=== PATIENT | female | born 1960 | race Caucasian/White ===

== ENCOUNTER 2016-10-07 16:58 | Emergency (ER) | payer MEDICAID ==
[~2016-10-07] VITALS: Ht 149.9 cm; Wt 68.0 kg
[~2016-10-07 16:58] MED LIST: [UNRECOGNIZED DRUG - REMARK]
[2016-10-07] MEDS ORDERED: AMOX/CLAVULANATE 875 MG TABLET PO ONE (18:00)
[2016-10-07] MEDS ORDERED: IBUPROFEN 600 MG TABLET PO ONE ×2 (18:00→19:25)
[2016-10-07] MEDS ORDERED: TDAP [DIPH/PERTUSSIS/TET] 0.5 ML VIAL IM ONE ×2 (18:00→19:25)
[2016-10-07] MEDS ORDERED: AMOX/CLAVULANATE 875 MG TABLET ONE (19:24)
== END 2016-10-07 20:20 | disposition home or self-care (01) ==
LOC: ER 17:07
DX: S41.152A Open bite of left upper arm, initial encounter (principal); J06.9 Acute upper respiratory infection, unspecified; F41.9 Anxiety disorder, unspecified; W54.0XXA Bitten by dog, initial encounter; Y93.89 Activity, other specified; Y92.89 Other specified places as the place of occurrence of the external cause; Y99.8 Other external cause status
CPT/HCPCS: 71010; 90471; 90715; 99283; A4606; Z7610